=== PATIENT | female | born 1945 | race Caucasian/White ===

== ENCOUNTER 2019-04-09 09:33 | Day surgery (SDC) | payer MEDICARE, BC ==
[2019-04-07 11:11] VITALS: BMI 29.2
[~2019-04-09 09:33] MED LIST: ALPRAZolam 0.25 MG TAB PO PRN; ASPIRIN 325 MG TAB PO ONE; NITROGLYCERIN SL TABS 0.4 MG TAB SUBLINGUAL PRN; SODIUM CHLORIDE 0.9% 1,000 ML in EMPTY BAG 1 BAG IV ONE
[2019-04-09 10:12] LABS: Glucose,Whole Blood 111 mg/dL (75-99)
[2019-04-09] MEDS ORDERED: SODIUM CHLORIDE 0.9% 1,000 ML IV ONE ×2 (10:16→12:30)
[2019-04-09 10:17] VITALS: TEMP 98.1
[2019-04-09] MEDS ORDERED: fentaNYL (PF) 50 MCG/ML 2 ML AMP ONE ×2 (11:36→14:15)
[2019-04-09] MEDS ORDERED: BENZOCAINE SPRAY 1 CAN MUCOUS MEM ONE (11:47)
[2019-04-09] MEDS ORDERED: MIDAZOLAM (PF) 2 MG/2 ML VIAL IV ONE ×2 (11:57→11:58)
[2019-04-09] MEDS ORDERED: fentaNYL (PF) 50 MCG/ML 2 ML AMP IV ONE (11:58)
[2019-04-09] MEDS ORDERED: LIDOCAINE 1% INJ 10MG/ML (20 ML MDV) ONE (12:07)
[2019-04-09] MEDS ORDERED: IOPAMIDOL-370 125ML BTL INJ ONE (12:59)
[2019-04-09] MEDS ORDERED: RX INFO: IV CONTRAST WAS GIVEN 1 EACH MISC MISCELLANE PRN (12:59)
[2019-04-09] MEDS ORDERED: SODIUM CHLORIDE 0.9% 1,000 ML IV SCH (13:00)
--- NOTE | 2019-04-09 13:23 | ECHOT ---
TRANSESOPHAGEAL ECHOCARDIOGRAM DATE OF SERVICE: April 09, 2019 PERFORMING PHYSICIAN: Alejandro Francois MD. PROCEDURE PERFORMED: Transesophageal echocardiogram. INDICATION: Aortic stenosis. PROCEDURE DESCRIPTION: After obtaining an informed consent, explaining the procedure, benefits, risks, complications and alternatives, the patient was brought to the transesophageal echocardiogram suite. A pulse oximetry and heart rate monitors were attached to the patient prior to the procedure. The patient's throat was sprayed using lidocaine locally. Following that, the patient was turned into left lateral position. A bite guard was placed and the patient was then sedated with the above doses of Versed and fentanyl in divided doses. Following that, the transesophageal echocardiogram probe was advanced through the bite guard into the mid esophagus where 2-D echocardiogram images as well as color Doppler images of various cardiac structures were obtained. We evaluated the interatrial septum using 2-D echocardiogram, color Doppler, and contrast study. The procedure was completed. There were no complications. FINDINGS: The left ventricular dimension and systolic function appeared to be within normal limits. The ejection fraction appeared to be in the range of 50% to 55%. The right ventricle appeared to be mildly dilated. The left atrium appeared to be moderately dilated. The left atrial appendage appeared to be free from any thrombus. The interatrial septum appeared to be intact without any evidence of shunt. The aortic valve is trileaflet valve and appeared to be thickened and calcified with evidence of aortic stenosis with a mean gradient more than 40 mmHg. The mitral valve seems to be mildly thickened with evidence of moderate mitral regurgitation. There was mild tricuspid regurgitation and mild pulmonic insufficiency seen. CONCLUSION: 1. Severe aortic stenosis with mean gradient more than 40 mmHg. The aortic valve appears to be trileaflet valve. 2. Thickened mitral valve leaflets with moderate mitral regurgitation. 3. Normal left ventricular dimension and systolic function. 4. Moderately dilated left atrium. 5. Normal left atrial appendage. 6. Intact interatrial septum. 7. Normal aortic root dimension. 8. No evidence of pericardial effusion. MMODL / IJN: [id number] /
--- NOTE | 2019-04-09 13:39 | CC ---
CARDIAC CATHETERIZATION REPORT DATE OF SERVICE: April 09, 2019 PERFORMING PHYSICIAN: Alejandro Francois MD. PROCEDURE PERFORMED: Selective right and left coronary angiogram. INDICATION: This is a pleasant 73-year-old female patient with known history of coronary artery disease and prior stenting of the LAD and diagonal as well as aortic stenosis was seen recently in the office where an echocardiogram revealed severe aortic stenosis with mean gradient above 40 mmHg. She was having shortness of breath with exertion. The decision was made towards transesophageal echocardiogram and subsequently a heart catheterization. The patient underwent transesophageal echocardiogram earlier today. APPROACH: Right common femoral artery. COMPLICATION: None. LEVEL OF SEDATION: Moderate with sedation length of 10 minutes. PROCEDURE DESCRIPTION: After obtaining an informed consent, the patient was brought to the cathode ray tube assembler. The right common femoral artery was cannulated using micropuncture technique and a micropuncture wire passed easily then I placed a 6-Kinyarwanda sheath in the right common femoral artery. After that, I did selective right and left coronary angiogram using JR4 and JL4 catheters. The procedure was completed without any complication. SELECTIVE CORONARY ANGIOGRAM: 1. The right coronary artery is a large caliber vessel and it is a dominant vessel and appeared to have mild disease in the proximal portion. 2. The left main is angiographically normal. It bifurcates into the left circumflex and left anterior descending artery. 3. The left circumflex is a large caliber vessel. It is a nondominant vessel. The left circumflex is angiographically normal. In the proximal portion, it gives rise into first OM branch which has mild disease only. 4. The LAD: The proximal LAD appeared to have mild disease only. The mid LAD is stented and the stent is patent. The LAD distally appears to be normal. The LAD gives rise into a large diagonal branch which is stented and the stent is patent as well. CONCLUSION: 1. Mild disease involving the right coronary artery. 2. Mild disease involving the left circumflex coronary artery. 3. Patent stent in both the LAD and diagonal branch of the LAD. POSTPROCEDURE MANAGEMENT: The patient will be scheduled to be seen by a surgeon for the evaluation of aortic valve replacement. MMODL / IJN: [id number] /
--- NOTE | 2019-04-09 13:39 | LTR ---
April 09, 2019 Re: Magali Atkinson Dear Dr. Fritz: Ms. Magali Atkinson underwent today a transesophageal echocardiogram and heart catheterization as well. She was found to have severe aortic stenosis and she will be scheduled to be seen by a surgeon for the evaluation of aortic valve replacement. I want to thank you for allowing me to participate in her care and please do not hesitate to call if you have any question or concern. Sincerely, Alejandro Francois MD MMIRMA / JAROCHON: [id number] /
[2019-04-09 16:26] VITALS: RESP 16
[2019-04-09 17:41] LABS: Glucose,Whole Blood 122 mg/dL (75-99)
[2019-04-09 18:07] VITALS: BP 143/76; PULSE 65
== END 2019-04-09 18:35 | disposition home or self-care (01) ==
LOC: CATHCVL 09:33
PROVIDERS: ATTEND Internal Medicine Interventional Cardiology
DX: I08.3 Combined rheumatic disorders of mitral, aortic and tricuspid valves (principal); I25.10 Atherosclerotic heart disease of native coronary artery without angina pectoris; I10 Essential (primary) hypertension; Z95.5 Presence of coronary angioplasty implant and graft; E78.5 Hyperlipidemia, unspecified; E11.9 Type 2 diabetes mellitus without complications; Z79.82 Long term (current) use of aspirin; Z79.4 Long term (current) use of insulin; Z79.899 Other long term (current) drug therapy; E78.00 Pure hypercholesterolemia, unspecified
CPT/HCPCS: 93312; 93320; 93325; 93454; C1769 ×3; C1894 ×2; J3010; Q9967; J2250

== ENCOUNTER → 2019-05-04 | Outpatient (CLI) | payer MEDICARE, BC | END | disposition home or self-care (01) | LOC: LABWHC1 09:57 | PROVIDERS: ATTEND Registered Nurse Critical Care Medicine | DX: I35.0 Nonrheumatic aortic (valve) stenosis (principal) | CPT/HCPCS: 36415; 82565; 84520 ==

== ENCOUNTER → 2020-05-23 | Day surgery (SDC) | payer MEDICARE, BC ==
[2020-05-22 08:40] VITALS: BMI 27.4
[~2020-05-23] MED LIST changes: -ALPRAZolam 0.25 MG TAB PO PRN; -ASPIRIN 325 MG TAB PO ONE; +BENZOCAINE SPRAY 1 CAN TOPICAL ONE; +MIDAZOLAM 2 MG/2 ML VIAL IVP ONE; -NITROGLYCERIN SL TABS 0.4 MG TAB SUBLINGUAL PRN; -SODIUM CHLORIDE 0.9% 1,000 ML in EMPTY BAG 1 BAG IV ONE; +SODIUM CHLORIDE 0.9% 500 ML 500 ML IV ONE; +fentaNYL (PF) 50 MCG/ML 2 ML AMP IVP ONE; +fentaNYL (PF) 50 MCG/ML 2 ML AMP ONE
[2020-05-23 09:53] LABS: Glucose,Whole Blood 199 mg/dL (75-99)
[2020-05-23 09:59] VITALS: RESP 18; TEMP 98.3
--- NOTE | 2020-05-23 11:04 | ECHOT ---
TRANSESOPHAGEAL ECHOCARDIOGRAM DATE OF SERVICE: May 23, 2020. PERFORMING PHYSICIAN: Alejandro Francois MD. PROCEDURE PERFORMED: Transesophageal echocardiogram. INDICATION: Evaluate the aortic regurgitation in this 75-year-old female who underwent transcutaneous aortic valve replacement about a year ago and surface echo revealed evidence of at least moderate aortic regurgitation. COMPLICATION: None. LEVEL OF SEDATION: Moderate with sedation length of 15 minutes. PROCEDURE DESCRIPTION: After obtaining an informed consent, the patient was brought to the transesophageal echocardiogram suite. A pulse oximetry and heart rate monitors were attached to the patient. Subsequently a bite guard was placed. Then the transesophageal echocardiogram probe was advanced to the mid esophagus where 2D echocardiogram images as well as color Doppler images as well as pulse and continuous-wave images were obtained. Particular attention was made to the aortic valve. The procedure was completed without any complication. FINDINGS: Left ventricular dimension and systolic function appeared to be within normal limits. The ejection fraction appeared to be in the range of 50% to 55%. The right ventricle appeared to be within normal limits for dimension. The left atrium appeared to be moderately dilated. The left atrial appendage was not well opacified. The mitral valve was thickened with evidence of mild to moderate mitral regurgitation. There was mild to moderate tricuspid regurgitation seen as well. The [employer] transcutaneous valve was seen with evidence of at least moderate to severe if not even severe perivalvular regurgitation seen. The aortic root appeared to be within normal limits for dimension. CONCLUSION: 1. Normal left ventricular dimension and systolic function. 2. Normal right ventricular dimension and systolic function. 3. Moderate left atrial dilatation. 4. Transcatheter aortic valve was seen with evidence of severe perivalvular regurgitation. There was evidence of reversal flow in the descending aorta. 5. Thickened anterior and posterior mitral leaflet with mild to moderate MR. 6. Mild to moderate tricuspid regurgitation. 7. No evidence of pericardial effusion. MMODL / IJN: [id number] /
[2020-05-23 12:31] VITALS: BP 149/63; PULSE 56
== END ==
LOC: CATHCVL 09:21
PROVIDERS: ATTEND Internal Medicine Interventional Cardiology
DX: I08.3 Combined rheumatic disorders of mitral, aortic and tricuspid valves (principal); Z95.2 Presence of prosthetic heart valve; Z95.5 Presence of coronary angioplasty implant and graft; I10 Essential (primary) hypertension; E78.5 Hyperlipidemia, unspecified; E11.9 Type 2 diabetes mellitus without complications; I25.10 Atherosclerotic heart disease of native coronary artery without angina pectoris; Z79.02 Long term (current) use of antithrombotics/antiplatelets; Z79.82 Long term (current) use of aspirin; Z79.4 Long term (current) use of insulin; Z79.899 Other long term (current) drug therapy
CPT/HCPCS: 93312; 93320; 93325; J2250; J3010

== ENCOUNTER → 2024-09-10 | Outpatient (CLI) | payer MEDICARE ==
--- NOTE | 2024-09-10 12:35 | XR ---
EXAMINATION TYPE: XR wrist complete LT DATE OF EXAM: 09/10/2024 COMPARISON: NONE CLINICAL INDICATION: Female, 79 years old with history of [id number] LT WRIST PAIN; TECHNIQUE: Four views submitted. FINDINGS: Osseous osteopenia. MCP joint and radiocarpal joint narrowing with chondrocalcinosis. No erosive beltran ges. First carpal metacarpal joint mild narrowing. IMPRESSION: 1. No definite acute fracture or dislocation if symptoms persist, follow-up study in 7 to 10 days wo uld be suggested. 2. Mild multijoint arthropathy with chondrocalcinosis. Favor osteoarthritis over deposition arthropat hy. [facility], , 09/10/2024 12:33 PM
== END | disposition home or self-care (01) ==
LOC: RADXRYALE 11:55
PROVIDERS: ATTEND Internal Medicine
DX: M11.232 Other chondrocalcinosis, left wrist (principal); M25.532 Pain in left wrist